=== PATIENT | male | born 1970 | race Caucasian/White ===

== ENCOUNTER 2017-09-10 19:57 | Emergency (ER) | payer BC ==
[2017-09-10] MEDS ORDERED: Nitroglycerin 0.4 MG TAB (25 Tab Bottle) ONE (20:22)
[2017-09-10 20:59] LABS: #Basophils 0.1 thou/uL (0.0-0.2); #Eosinphils 0.1 thou/uL (0.0-0.7); #Lymphocytes 2.4 thou/uL (1.20-3.40); #Monocytes 0.5 thou/uL (0.11-0.59); #Neutrophils 3.5 thou/uL (1.40-6.50); %Basophils 1.6 % (0.0-1.0); %Eosinophils 1.4 % (0.0-10.0); %Lymphocytes 35.8 % (21.0-51.0); %Monocytes 8.2 % (0.0-10.0); %Neutrophils 52.9 % (42.0-75.0); Hemoglobin 13.4 g/dL (14.0-18.0); Mean Corpuscular HGB CONC 33.4 g/dL (32.0-36.0); Mean Corpuscular Hemoglobin 30.4 pg (27.0-31.0); Mean Platelet Volume 8.6 fL (7.4-10.4); Platelet Count 196 thou/uL (130-400); RBC Distribution Width 10.9 % (11.5-14.5); Red Blood Cell (RBC) Count 4.42 mill/uL (4.70-6.10); White Blood Cell (WBC) Count 6.6 thou/uL (4.8-10.8)
[2017-09-10 21:18] LABS: ALT (SGPT) 16 U/L (8-55); AST (SGOT) 17 U/L (5-34); Albumin 4.3 g/dL (3.5-5.0); Alkaline Phosphatase 57 U/L (40-150); Anion Gap 12 mmol/L (10-20); BUN (Urea Nitrogen) 13 mg/dL (8.9-20.6); Bilirubin, Total 0.8 mg/dL (0.2-1.2); Calc. Creatinine Clearance 0 mL/min (70-130); Calcium 9.5 mg/dL (7.8-10.44); Carbon Dioxide 28 mmol/L (22-29); Chloride 104 mmol/L (98-107); Estimated GFR-MDRD 89; Globulin 2.4 g/dL (2.4-3.5); Glucose 107 mg/dL (70-105); Potassium 3.8 mmol/L (3.5-5.1); Protein, Total 6.7 g/dL (6.0-8.3); Sodium 140 mmol/L (136-145)
--- NOTE | 2017-09-10 21:18 | RAD ---
CHEST TWO VIEW: History: Chest pain. Comparison: 01-06-15 FINDINGS: Lungs are clear. No pneumothorax or effusion. Cardiac silhouette and mediastinal contours are within normal limits. IMPRESSION: No acute intrathoracic abnormality. POS: [id number]
[2017-09-10 21:19] LABS: CKMB 0.8 ng/mL (0-6.6); Troponin I 0.016 ng/mL (< 0.028)
[2017-09-10 23:28] LABS: Troponin I Less than 0.010 ng/mL (< 0.028)
== END 2017-09-10 23:40 | disposition home or self-care (01) ==
LOC: SCSER 19:57
DX: R07.89 Other chest pain (principal); F17.210 Nicotine dependence, cigarettes, uncomplicated; Z79.899 Other long term (current) drug therapy
CPT/HCPCS: 71046; 80053; 82553; 84484; 85025; 85379; 93005

== ENCOUNTER 2023-05-11 09:59 | Outpatient (CLI) | payer BC | END 2023-05-11 10:00 | disposition home or self-care (01) | LOC: RAD 09:59 | PROVIDERS: ATTEND Internal Medicine Critical Care Medicine | DX: R06.00 Dyspnea, unspecified (principal) | CPT/HCPCS: 71046 ==